=== PATIENT | male | born 1960 | race Caucasian/White ===

== ENCOUNTER 2025-07-13 13:15 | Outpatient (REF) | payer MEDICAID, SELFPAY ==
[2025-07-13 16:32] LABS: Hemoglobin A1C 129.1995 umol/L; Total Hemoglobin (HGBA1C) 3328.2430 umol/L
[2025-07-13 16:33] LABS: Hematocrit 37.3 % (42.0-52.0); Hemoglobin 12.8 g/dl (14.0-18.0); Mean Corpuscular HGB Conc 34.3 g/dl (31.0-36.0); Mean Corpuscular Hemoglobin 29.2 pg (27.0-33.0); Mean Corpuscular Volume 85.2 fL (80.0-98.0); NRBC Abs Auto 0.000 X10*3/uL (0.0-0.012); NRBC Pct Auto 0.0 /100WBC (0.0-0.2); Platelet Count 303 X10*3/uL (160-400); Red Blood Count 4.38 X10*6/uL (4.60-5.80); White Blood Count 7.5 X10*3/uL (4.8-10.8)
[2025-07-13 16:37] LABS: Alanine Aminotransferase 17 U/L (0-40); Albumin Level 4.1 g/dL (3.5-5.0); Alkaline Phosphatase 66 U/L (39-117); Anion Gap 13 (12-20); Aspartate Amino Transferase 39 U/L (5-37); Blood Urea Nitrogen 8 mg/dL (9-16); Calcium 8.3 mg/dL (8.4-10.2); Carbon Dioxide 25 mmol/L (22-29); Chloride 108 mmol/L (96-108); Cholesterol 156 mg/dL (<200); Estimated Glomerular Filt Rate 59; HDL Cholesterol 43 mg/dL (>40); Potassium 3.5 mmol/L (3.3-5.1); Sodium 142 mmol/L (135-145); Total Protein 6.9 g/dL (6.5-8.0); Triglycerides 97 mg/dL (<150)
[2025-07-13 16:57] LABS: Free T4 (Free Thyroxine) 0.94 ng/dL (0.71-1.85); Thyroid Stimulating Hormone 1.42 uIU/mL (0.32-4.0)
--- OUTSIDE RECORDS SUMMARY | 2025-07-13 17:19 | XMS_ITS | Encounter Summary ---
Author Organization [employer] ([employer]) Address [address] [facility] 7t [place] [address] Care Team Providers Care Loan Auditor Name Role Phone Joan De La Garza Primary Care Provider Jeanette Brown MD Primary Care Provide r Henny Rolon DO Primary Care Provider Encounter Details Date Type Department Care Team (Late st Contact Info) Description 10/17/2022 Orders Only [facility] [address] [place] [address] Joan De La Garza FNP Social History Tobacco Use Types Packs/Day Years Used Date Smoking Tobacco: Never Assessed Sex and Gender Information Value Date Recorded Sex Assigned at Male 09/01/2022 10:15 AM EDT Legal Sex Male 10:15 AM EDT Gender Identity Male 09/29/2022 5:38 PM EST Sexual Orientation Straight 11/11/2022 2: 44 PM EST COVID-19 Exposure Response Date Recorded In the last 10 days, have yo u been in contact with someone who was confirmed or suspected to have Coronavirus/COVID-19? No / Unsure 10/14/2022 10:36 AM EST documented as of this encounter Plan of Treatment Not on file documented as of this encounter Visit Diagnoses Not on filedocumented in this encounter Care Teams Loan Auditor Relationship Specialty Start Date End Date Joan De La Garza FNP PCP - General Family Medicine 09/29/22 12/31/22 Jeanette Hutchison MD [address] [place] [address] PCP - General Internal Medicine 01/01/23 02/22/24 Henny Rolon DO [address] [place] [address] PCP - General Family Medicine 06/28/25 documented as of this encounter
--- OUTSIDE RECORDS SUMMARY | 2025-07-13 17:19 | XMS_ITS | Encounter Summary ---
Author Organization [employer] Address [address] [facility] 7t [place] [address] Care Team Providers Care Head Tennis Coach Name Role Phone Joan De La Garza Primary Care Provider Jeanette Brown MD Primary Care Provide r Henny Rolon DO Primary Care Provider [phone] Encounter Details Date Type Department Care Team (Late st Contact Info) Description 10/23/2022 Orders Only [facility] MEDICINE [address] [place] [address] Oralia Cisse RN [address] [place] [address] Social History Tobacco Use Types Packs/Day Years [...] suspected to have Coronavirus/COVID-19? No / Unsure 10/23/2022 10:55 AM EST documented as of this encounter Plan of Treatment Not on file documented as of this encounter Visit Diagnoses Not on filedocumented in this encounter Care Teams Head Tennis Coach Relationship Specialty Start Date End Date Joan De La Garza FNP PCP - General Family Medicine 09/29/22 12/31/22 Jeanette Hutchison MD [address] [place], [place] [phone] PCP - General Internal Medicine 01/01/23 02/22/24 Henny Rolon DO [address] [place] [phone] PCP - General Family Medicine 06/28/25 documented as of this encounter
--- OUTSIDE RECORDS SUMMARY | 2025-07-13 17:19 | XMS_ITS | Encounter Summary ---
Author Organization [employer] Address [address] [facility] 7t [place] [address] Care Team Providers Care Curatorial Assistant Name Role Phone Joan De La Garza Primary Care Provider Jeanette Brown MD Primary Care Provide r Henny Rolon DO Primary Care Provider [phone] Encounter Details Date Type Department Care Team (Late st Contact Info) Description 10/10/2022 Abstract [facility] MEDICINE [address] [place] [address] Joan De La Garza FNP Social History [...] suspected to have Coronavirus/COVID-19? No / Unsure 10/10/2022 9:07 AM EST documented as of this encounter Plan of Treatment Not on file documented as of this encounter Visit Diagnoses Not on filedocumented in this encounter Care Teams Curatorial Assistant Relationship Specialty Start Date End Date Joan De La Garza FNP PCP - General Family Medicine 09/29/22 12/31/22 Jeanette Hutchison MD [address] [place] [address] PCP - General Internal Medicine 01/01/23 02/22/24 Henny Rolon DO [address] [place] [address] PCP - General Family Medicine 06/28/25 documented as of this encounter
--- OUTSIDE RECORDS SUMMARY | 2025-07-13 17:19 | XMS_ITS | Clinical Summary ---
Author Organization [employer] Address [address] [facility] 7t [place] [address] Care Team Providers Care Associate Professor Of Sociology Name Role Phone Henny Rolon DO Primary Care Provider [phone] Allergies Active Allergy Reactions Criticality Noted Date Comments Acetaminophen Hives Medium 10/07/2022 Aspirin Hives Medium 08/26/2019 Medications docusate sodium (Colace) 100 MG capsuleIndicat ions:Constipat ion Take 100 mg by mouth if needed in the morning and at bedtime for constipation. 09/01/20 22 Active naloxone (Narcan) 4 mg/0.1 mL nasal spray Administer 4 mg into affected nostril(s) if needed for opioid reversal. May repeat every 2-3 minutes if needed, alternating nostrils, until medical assistance becomes available. Active Nirmatrelvir&R itonavir 300/100 (Paxlovid, 300/100,) 20 x 150 MG & 10 x 100MG tablet therapy packIndication s:COVID-19 virus infection Take 300 mg by mouth in the morning and at bedtime. Take 3 tablets 2x/day for 5 days 30 each 10/23/20 22 025 Discontinued Buprenorphine HCl-Naloxone HCl (Suboxone) 8-2 MG SL filmIndication s:Uncomplicate d opioid dependence (CMS/HCC) Place 1 Film under the tongue 3 times daily for 5 days. 15 Film 07/10/20 23 025 Discontinued Active Problems Problem Noted Date Diagnosed Date Opioid dependence, uncomplicated 10/08/2022 Crack cocaine use 09/30/2022 Homelessness 09/30/2022 Tobacco dependence 09/30/2022 Encounters Date Type Department Care Team Description 06/28/2025 9:00 AM EDT Office Visit [facility] MEDICINE [address] [place] [phone] Henny Rolon DO PTSD (post-traumatic stress disorder) (Primary Dx); Uncomplicated opioid dependence (CMS/HCC); Chest pain, unspecified type; Tobacco dependence; Myopia of both eyes; Healthcare maintenance; BMI 21.0-21.9, adult; Dietary counseling; Exercise counseling; Other specified anxiety disorders; Liver disease, unspecified; Abnormal finding of blood chemistry, unspecified; Encounter for screening for infections with a predominantly sexual mode of transmission; Anemia, unspecified type 06/28/2025 Travel 06/26/2025 Telephone [facility] [address] [place] [phone] Henny Rolon DO Chart Prep 06/21/2025 Patient Outreach [address] [address] Henny Rolon DO Pre-visit Planning (Pre-visit planning - Unable to complete SDOH screening. ) 05/26/2025 Patient Outreach [address] [address] [facility] 05/25/2025 Patient Outreach [address] [address] Shon Skelton [facility] 05/25/[address] [address] Sanjeev Leiva MD New Patient appt. 05/22/2025 Telephone [facility] INS ENROLLMENT [address] [place] [phone] Caridad Alvarenga MD from Last 3 Months Family History Medical History Relation Name Comments Heart disease Brother 1 Substance use Brother 2 Heart attack Father Heart disease Father Stroke Father Breast cancer Mother Depression Mother Relation Name Status Comments Brother 1 Brother 2 Father Mother Social History Tobacco Use Types Packs/Day Years Used Date Smoking Tobacco: Former Cigarettes 0.5 45 Smokeless Tobacco: Former Tobacco Cessation:Counseling Given: Not Answered Alcohol Use Standard Drinks/Week Comments Never 0 (1 standard drink = 0.6 oz pur e alcohol) Alcohol Answer Date Recorded How often do you have a drink containing alcohol ? 1 06/28/2025 How many drinks containing a lcohol do you have on a typical day when you are drinking? 0 06/28/2025 How often do you have six or more drinks on one occasion? 0 06/28/2025 Depression Answer Date Recorded Patient Health Questionnaire-9 Score 24 06/28/2025 Patient Health Questionnaire-9 Score 24 06/28/2025 Last PHQ-9: Questionnaire Data Not on file 0 06/28/2025 Housing Stability Answer Date Recorded What is your housing situation today? I have housing today, but I am worried about losing housing in the future 06/28/[address] you li ve. Do you have problems with any of the following? I am not sure 06/28/2025 Food Insecurity Answer Date Recorded Within the past 12 months, y ou worried that your food would run out before you got money to buy more: Sometimes True 2024 Within the past 12 months,th e food you bought just didn't last and you didn't have enough money to get more: Sometimes True 06/28/2025 Transportation Answer Date Recorded In the past 12 months, has l ack of transportation kept you from medical appts, meetings, work or from getting things needed for daily living? Yes, it has kept me from non-medical meetings, work, or getting things that I need 06/28/2025 Utilities Answer Date Recorded In the past 12 months, has t he electric, gas, oil or water company threatened to shut off services in your home? I am not sure 06/28/2025 Depression Answer Date Recorded Patient Health Questionnaire-2 Score 6 06/28/2025 Internet Access Answer Date Recorded Internet Access Q1 No 06/28/2025 Internet Access Q2 My internet/Wi-Fi ac cess is not consistent or reliable 06/28/2025 Sex and Gender Information Value Date Recorded Sex Assigned at Male 09/01/2022 10:15 AM EDT Legal Sex Male 10:15 AM EDT Gender Identity Male 09/29/2022 5:38 PM EST Sexual Orientation Straight 11/11/2022 2: 44 PM EST Last Filed Vital Signs Vital Sign Reading Time Taken Comments Blood Pressure 110/70 06/28/2025 8:57 AM EDT Pulse 75 06/28/2025 8:57 AM EDT Temperature 36.2 C (97.1 F) 06/28/2025 8:57 AM EDT Respiratory Rate 18 06/28/2025 8:57 AM EDT Oxygen Saturation 98% 06/28/2025 8:57 AM EDT Inhaled Oxygen Concentration - - Weight 59.2 kg (130 lb 8 oz) 06/28/2025 8:57 AM EDT Height 165.1 cm (5' 5 ) 06/28/2025 8:57 AM EDT Body Mass Index 21.72 06/28/2025 8:57 AM EDT Plan of Treatment Health Maintenance Due Date Last Done Comments Anal Pap 1959 CT Colonography 1959 Colonoscopy 1959 Colorectal Cancer Screening 1959 Dental Prophylaxis 1959 FIT DNA/Cologuard 1959 FIT 1959 FOBT 1959 Sigmoidoscopy 1959 DTaP/Tdap/Td Vaccines (1 - Tdap) 1978 Hepatitis A Vaccines (1 of 2 - Risk 2-dose series) 1978 Pneumococcal Vaccine: 50+ Years (1 of 1 - PCV) 2009 Zoster Vaccines (1 of 2) 2009 Hepatitis B Vaccines (1 of 3 - Risk 3-dose series) 2019 RSV Patients and Patients Aged 60 years or older (1 - Risk 60-74 years 1-dose series) 2019 Dental Oral Exam 06/05/2023 12/05/2022 Dental X-Ray: Bitewings 12/06/2023 12/05/2022 COVID-19 Vaccine (1 - 2023-2 5 season) 2025 Influenza Vaccine (#1) 2025 Dental X-Ray: Full Mouth 12/06/2025 12/05/2022 Depression Monitoring 12/29/2025 06/28/2025 , 06/28/2025 Alcohol/Substance Use Screening 06/28/2026 06/28/2025 SDOH Screening 06/28/2026 06/28/2025 Tobacco Screening 06/28/2026 06/28/2025 Diabetes: Hemoglobin A1C 07/13/2026 07/13/2025 Lipid Panel 07/13/2030 07/13/2025 Hepatitis C Screening Completed 09/29/2022 HIB Vaccines Aged Out No longer eligi ble based on patient's age to complete this topic HPV Vaccines Aged Out No longer eligi ble based on patient's age to complete this topic IPV Vaccines Aged Out No longer eligi ble based on patient's age to complete this topic Meningococcal B Vaccine Aged Out No l onger eligible based on patient's age to complete this topic Meningococcal Vaccine Aged Out No yuridia pawan eligible based on patient's age to complete this topic RSV under 20 months Aged Out No longe r eligible based on patient's age to complete this topic Rotavirus Vaccines Aged Out No longer eligible based on patient's age to complete this topic Procedures Procedure Name Priority Date/Time Associated Diagnosis Comments BASIC METABOLIC PANEL Routine 07/13/2025 1:40 PM EDT PTSD (post-traumatic stress disorder) Uncomplicated opioid dependence (CMS/HCC) Chest pain, unspecified type Tobacco dependence Myopia of both eyes Healthcare maintenance CBC Routine 07/13/2025 1:40 PM EDT PTSD (post-traumatic stress disorder) Uncomplicated opioid dependence (CMS/HCC) Chest pain, unspecified type Tobacco dependence Myopia of both eyes Healthcare maintenance HEMOGLOBIN A1C Routine 07/13/2025 1:40 PM EDT PTSD (post-traumatic stress disorder) Uncomplicated opioid dependence (CMS/HCC) Chest pain, unspecified type Tobacco dependence Myopia of both eyes Healthcare maintenance Abnormal finding of blood chemistry, unspecified HEPATIC FUNCTION PANEL Routine 1:40 PM EDT PTSD (post-traumatic stress disorder) Uncomplicated opioid dependence (CMS/HCC) Chest pain, unspecified type Tobacco dependence Myopia of both eyes Healthcare maintenance VITAMIN D,25-OH,TOTAL,IA Routine 07/13/2025 1:40 PM EDT PTSD (post-traumatic stress disorder) Uncomplicated opioid dependence (CMS/HCC) Chest pain, unspecified type Tobacco dependence Myopia of both eyes Healthcare maintenance Liver disease, unspecified TSH Routine 07/13/2025 1:40 PM EDT PTSD (post-traumatic stress disorder) Uncomplicated opioid dependence (CMS/HCC) Chest pain, unspecified type Tobacco dependence Myopia of both eyes Healthcare maintenance Other specified anxiety disorders LIPID PANEL, STANDARD Routine 07/13/2025 1:40 PM EDT PTSD (post-traumatic stress disorder) Uncomplicated opioid dependence (CMS/HCC) Chest pain, unspecified type Tobacco dependence Myopia of both eyes Healthcare maintenance T4, FREE Routine 07/13/2025 1:40 PM EDT PTSD (post-traumatic stress disorder) Uncomplicated opioid dependence (CMS/HCC) Chest pain, unspecified type Tobacco dependence Myopia of both eyes Healthcare maintenance Other specified anxiety disorders INTRAORAL - COMPLETE SERIES OF RADIOGRAPHIC IMAGES Routine 12/05/2022 1:00 PM EST COMPREHENSIVE ORAL EVALUATION - NEW OR ESTABLISHED PATIENT Routine 12/05/2022 1:00 PM EST ZZZ HISTORICAL HEPATITIS C AB W/REFL TO HCV RNA, QN, PCR Routine 09/29/2022 10:56 AM EST from Last 3 Months or Most Recently Relevant to Health Maintenance Results * Vitamin D, 25-Hydroxy, Total, Immunoassay (07/13/2025 1:40 PM EDT) Vitamin D 25-OH Total 48.8 >30 ng/mL [facility] Comment: Health Based Reference Values*< 20 ng/mL Rcgmqyrhy61-29 ng/mL Insufficient> 30 ng/mL Sufficient*Elis LAWLER. N Engl J Med. 2007;357:266-280There is no well-established upper level of normal vitamin Dlevels. Some laboratories use 50 ng/mL as an upper limit ofnormal. However, toxicity is patient-dependent and may occurat any level. Careful correlation with the patient'spresentation is necessary and, if there is concern forvitamin D toxicity, treatment should be consideredirrespective of the serum level.Care must be taken in interpreting Vitamin D results fromdifferent laboratories and methodologies. Published datademonstrated that results from patients undergoinghemodialysis may show a negative bias when tested withvarious automated 25-OH vitamin D assays when compared toLC-MS/MS.When testing samples from patients whose predominant form ofVitamin D is Vitamin D2, such as patients receiving VitaminD2 supplementation, results that are subtherapeutic shouldbe confirmed with another method such as LC-MS/MS. Blood Venous blood specimen / Unknown 07/13/2025 1:40 PM EDT 07/13/2025 4:03 PM EDT Henny Rolon DO LAB BLOOD ORDERABLES Final R esult Performing Organization Address City/[facility]/ZIP Co de Phone Number [facility] [address] [place] [phone] * (ABNORMAL) CBC (07/13/2025 1:40 PM EDT) White Blood Count 7.5 4.8 - 10.8 X10*3/uL [facility] Red Blood Count 4.38(L) 4.60 - 5.80 X10*6/uL [facility] Hemoglobin 12.8(L) 14.0 - 18.0 g/dl [facility] Hematocrit 37.3(L) 42.0 - 52.0 % [facility] Mean Corpuscular Volume 85.2 80.0 - 98.0 fL [facility] Mean Corpuscular Hemoglobin 29.2 27.0 - 33.0 pg [facility] Mean Corpuscular HGB Conc 34.3 31.0 - 36.0 g/dl [facility] Red Cell Distribution Width 15.5 11.0 - 16.0 % [facility] Platelet Count 303 160 - 400 X10*3/uL [facility] Mean Platelet Volume 9.8 9.4 - 12.4 fL [facility] NRBC Pct Auto 0.0 0.0 - 0.2 /100WBC [facility] NRBC Abs Auto 0.000 0.0 - 0.012 X10*3/uL [facility] Blood Venous blood specimen / Unknown 07/13/2025 1:40 PM EDT 07/13/2025 4:03 PM EDT Henny Rolon DO LAB BLOOD ORDERABLES Final R esult [facility] [address] [place] [phone] * TSH (07/13/2025 1:40 PM EDT) Pathologist [facility] Thyroid Stimulating Hormone 1.42 0.32 - 4.0 uIU/mL [facility] Comment:TSH 3rd Generation ( [facility]) Blood Venous blood specimen / Unknown 07/13/2025 1:40 PM EDT 07/13/2025 4:03 PM EDT Henny Rolon DO LAB BLOOD ORDERABLES Final R esult [facility] [address] [place] [phone] * T4, Free (07/13/2025 1:40 PM EDT) Pathologist [facility] Free T4 (Free Thyroxine) 0.94 0.71 - 1.85 ng/dL [facility] Blood Venous blood specimen / Unknown 07/13/2025 1:40 PM EDT 07/13/2025 4:03 PM EDT Henny Rolon DO LAB BLOOD ORDERABLES Final R esult [facility] [address] [place] [phone] * Hemoglobin A1c (07/13/2025 1:40 PM EDT) Pathologist [facility] Hemoglobin A1c 5.7 <6.0 % [facility] Comment:Hemoglobin A1C Refer ence Range Adults: 4.8 - 6.0 % Non diabetic: < 6.0 % Goal: < 7.0 %Additional Action Suggested: > 8.0 %Note: Hemoglobin A1c results are invalid for patients with abnormal amounts of HbF. Blood transfusions may impact the HbA1c concentration in the patient sample. Estimated Average Glucose 117 mg/dL [facility] Comment:eAG = Estimated ave rage glucose which is %A1C expressed asaverage glucose, using the formula of the [id number] Glucose study (ADAG), Diabetes Care, Vol.31,#8,2007 Blood Venous blood specimen / Unknown 07/13/2025 1:40 PM EDT 07/13/2025 4:03 PM EDT Henny Ольга DO LAB BLOOD ORDERABLES Final R esult Performing Organization Address City/[facility]/ZIP Co de Phone Number [facility] [address] [place] [phone] * (ABNORMAL) Hepatic Function Panel (07/13/2025 1:40 PM EDT) Bilirubin, Total 0.4 0.0 - 1.0 mg/dL [facility] Bilirubin, Direct 0.1 0.0 - 0.5 mg/dL [facility] Aspartate Amino Transferase 39(H) 5 - 37 U/L [facility] Alanine Aminotransferase 17 0 - 40 U/L [facility] Total Protein 6.9 6.5 - 8.0 g/dL [facility] Albumin Level 4.1 3.5 - 5.0 g/dL [facility] Alkaline Phosphatase 66 39 - 117 U/L [facility] Blood Venous blood specimen / Unknown 07/13/2025 1:40 PM EDT 07/13/2025 4:03 PM EDT Henny Ольга DO LAB BLOOD ORDERABLES Final R esult Performing Organization Address City/[facility]/ZIP Co de Phone Number [facility] [address] [place] [phone] * Lipid Panel, Standard (07/13/2025 1:40 PM EDT) Triglycerides 97 <150 mg/dL [facility] Comment:Desirable Triglyceri de: less than 150 mg/dLBorderline High Triglyceride 150-199 mg/dLHigh Triglyceride: 200-499 mg/dLVery High Triglyceride: greater than or equal to 5OO mg/dL Cholesterol 156 <200 mg/dL [facility] Comment:Desirable Cholestero l: less than 200 mg/dLBorderline High Cholesterol: 200-239 mg/dLHigh Cholesterol: greater than 239 mg/dL LDL Cholesterol Calculated 94 <100 mg/dL [facility] Comment:Desirable LDL: less than 100 mg/dLNear Optimal/Above Optimal LDL: 110- 129 mg/dLBorderline High LDL: 130-159 mg/dLHigh LDL: 160-189 mg/dLVery High LDL: greater than or equal to 190 mg/dL HDL Cholesterol 43 >40 mg/dL [facility] Comment:Desirable HDL: great er than 40 mg/dL Note: This HDL assay may give artificially low results in patients with liver disease. Blood Venous blood specimen / Unknown 07/13/2025 1:40 PM EDT 07/13/2025 4:03 PM EDT us Henny Rolon DO LAB BLOOD ORDERABLES Final R esult [facility] [address] [place] [phone] * (ABNORMAL) Basic Metabolic Panel (07/13/2025 1:40 PM EDT) Sodium 142 135 - 145 mmol/L [facility] Potassium 3.5 3.3 - 5.1 mmol/L [facility] Chloride 108 96 - 108 mmol/L [facility] Carbon Dioxide 25 22 - 29 mmol/L [facility] Anion Gap 13 12 - 20 [facility] Urea Nitrogen (BUN) 8(L) 9 - 16 mg/dL [facility] Creatinine, Serum 1.24 0.5 - 1.4 mg/dL [facility] Estimated Glomerular Filt Rate 59 [facility] Comment:Chronic Kidney Disea se: Estimated GFR < 60 mL/min/1.18t8Dnacyr Kidney Disease: Estimated GFR < 15 mL/min/1.73m2 Glucose 112 60 - 115 mg/dL [facility] Calcium 8.3(L) 8.4 - 10.2 mg/dL [facility] Blood Venous blood specimen / Unknown 07/13/2025 1:40 PM EDT 07/13/2025 4:03 PM EDT Henny Rolon DO LAB BLOOD ORDERABLES Final R esult [facility] [address] [place] [phone] * HEPATITIS C AB W/REFL TO HCV RNA, QN, PCR (09/29/2022 10:56 AM EST) HEPATITIS C ANTIBODY NON-REACTI VE NON-REACT CHLOÉ [facility] INDEX 0.07 <1.00 [facility] Comment: HCV antibody was non-reactive. There is no laboratory evidence of HCV infection. In most cases, no further action is required. However, if recent HCV exposure is suspected, a test for HCV RNA (test code 83009) is suggested. For additional information please refer to http://education.TriviaPad/faq/AIK25h3 (This link is being provided for informational/ educational purposes only.) 09/29/2022 10:5 6 AM EST Rakesh Mix MD HISTORICAL/NON ORDERABLE LABS Fi nal Result [facility] from Last 3 Months or Most Recently Relevant to Health Maintenance Insurance MEDICARE [facility] STANDARD Care Teams Associate Professor Of Sociology Relationship Specialty Start Date End Date Henny Rolon DO [address] [place] [address] PCP - General Family Medicine 06/28/25
--- OUTSIDE RECORDS SUMMARY | 2025-07-13 17:19 | XMS_ITS | Encounter Summary ---
Author Organization [employer] Address [address] [facility] [address]t [place] [address] Care Team Providers Care Shearing Machine Operator Name Role Phone Jeanette Hutchison MD Primary Care Provide r Henny Rolon DO Primary Care Provider Encounter Details Date Type Department Care Team (Late st Contact Info) Description 04/27/2023 Abstract [facility] [address] [place], [place] [phone] Bert Clemons, ARIEL [address] [place], [place] [phone] Social History Tobacco Use Types Packs/Day Years Used Date Smoking Tobacco: Former Cigarettes 0.5 45 Smokeless Tobacco: Former Alcohol Use Standard Drinks/Week Comments Never 0 (1 standard drink = 0.6 oz pur e alcohol) Sex and Gender Information Value Date Recorded [...] suspected to have Coronavirus/COVID-19? No / Unsure 04/30/2023 10:22 AM EDT documented as of this encounter Plan of Treatment Not on file documented as of this encounter Visit Diagnoses Not on filedocumented in this encounter Care Teams Shearing Machine Operator Relationship Specialty Start Date End Date Jeanette Hutchison MD [address] [place], [place] [phone] PCP - General Internal Medicine 01/01/23 02/22/24 Henny Rolon DO [address] [place] [address] PCP - General Family Medicine 06/28/25 documented as of this encounter
[2025-07-14 08:17] LABS: ~Hepatitis A Antibody IgG 5.11 S/CO (0.00-0.99)
[2025-07-14 08:36] LABS: HBS Num1 3.15 mIU/mL (0-7.99); HBc Num1 0.12 S/CO (0.00-0.79); HBsAGNum1 0.44 S/CO (0.00-0.99); HIV Num 1 0.06 S/CO (0.00-0.99); Hepatitis B Surface Antigen Negative (Negative); ~HepC Num1 0.09 S/CO (0.00-0.79); ~Hepatitis B Surface Antibody NONREACTIVE (Nonreactive); ~Hepatitis C Antibody Nonreactive (Nonreactive)
[2025-07-14 16:57] LABS: Iron 67 mcg/dL (45-160); Percent Iron Saturation 27 % (15-50); Total Iron Binding Capacity 247 mcg/dL (228-428); Unsaturated Iron Binding 180 ug/dL
[2025-07-14 17:11] LABS: Ferritin 100 ng/mL (20-250)
[2025-07-16 20:18] LABS: TS Negative Control Passed; TS Panel A 0; TS Panel B 0; TS Positive Control Passed; TSpotTB Negative (Negative)
== END 2025-07-13 13:16 | disposition home or self-care (01) ==
LOC: HO.HHCL 13:15
PROVIDERS: PCP Family Medicine; Visit Provider Family Medicine
DX: Z00.00 Encounter for general adult medical examination without abnormal findings (principal); Z11.59 Encounter for screening for other viral diseases; Z11.1 Encounter for screening for respiratory tuberculosis; Z11.4 Encounter for screening for human immunodeficiency virus [HIV]; Z11.3 Encounter for screening for infections with a predominantly sexual mode of transmission; F43.10 Post-traumatic stress disorder, unspecified; F11.20 Opioid dependence, uncomplicated; R07.9 Chest pain, unspecified; D64.9 Anemia, unspecified; F17.200 Nicotine dependence, unspecified, uncomplicated; H52.13 Myopia, bilateral; F41.8 Other specified anxiety disorders; K76.9 Liver disease, unspecified; R79.9 Abnormal finding of blood chemistry, unspecified
CPT/HCPCS: 36415; 80048; 80061; 80076; 82306; 82728; 83036; 83540; 84439; 84443; 85027; 86481; 86592; 86704; 86706; 86708; 86803; 87340; 87389